=== PATIENT | female | born 1955 | race Caucasian/White ===

== ENCOUNTER 2016-06-05 12:25 | Outpatient (CLI) | payer MEDICARE, OTHER ==
[2016-06-05 16:44] LABS: ALT (SGPT) 15 U/L (0-55); AST (SGOT) 21 U/L (5-34); Albumin 4.3 g/dL (3.4-4.8); Alkaline Phosphatase 90 U/L (40-150); Anion Gap 11 mmol/L (10-20); BUN (Urea Nitrogen) 17 mg/dL (9.8-20.1); Bilirubin, Total 0.3 mg/dL (0.2-1.2); Calc. Creatinine Clearance 0 mL/min (70-130); Calcium 9.4 mg/dL (7.8-10.44); Carbon Dioxide 26 mmol/L (23-31); Chloride 111 mmol/L (98-107); Cholesterol 186 mg/dL (< 200 Desired); Estimated GFR-MDRD 70; Glucose 91 mg/dL (80-115); HDL Cholesterol 63 mg/dL (>60 Neg Risk); LDL Cholesterol, Calculated 102 mg/dL; Potassium 4.7 mmol/L (3.5-5.1); Protein, Total 6.3 g/dL (5.8-8.1); Sodium 143 mmol/L (136-145); Triglycerides 105 mg/dL (Less than 150)
== END 2016-06-05 12:26 | disposition home or self-care (01) ==
LOC: LABLEX 12:25
PROVIDERS: ATTEND Family Medicine
DX: E78.00 Pure hypercholesterolemia, unspecified (principal); E04.1 Nontoxic single thyroid nodule; R79.89 Other specified abnormal findings of blood chemistry; I69.90 Unspecified sequelae of unspecified cerebrovascular disease
CPT/HCPCS: 80053; 80061; 84443